=== PATIENT | male | born 1980 | race Caucasian/White ===

== ENCOUNTER 2017-06-16 09:25 | Emergency (ER) | payer BC | END 2017-06-16 09:55 | disposition home or self-care (01) | LOC: SCSER 09:25 | DX: K64.4 Residual hemorrhoidal skin tags (principal) | CPT/HCPCS: 99282 ==

== ENCOUNTER 2017-09-09 16:06 | Outpatient (CLI) | payer BC | END 2017-09-09 16:07 | disposition home or self-care (01) | LOC: BICMRI 16:06 | PROVIDERS: ATTEND Family Medicine | DX: M51.26 Other intervertebral disc displacement, lumbar region (principal); R30.0 Dysuria; N52.9 Male erectile dysfunction, unspecified; M47.897 Other spondylosis, lumbosacral region | CPT/HCPCS: 72148 ==

== ENCOUNTER 2020-08-13 12:52 | Outpatient (CLI) | payer BC ==
[~2020-08-13 12:52] MED LIST: Iopamidol-370 76% 500 ML 1 ML ONE
== END 2020-08-13 12:53 | disposition home or self-care (01) ==
LOC: BICCT 12:52
PROVIDERS: ATTEND Urology
DX: R31.29 Other microscopic hematuria (principal)
CPT/HCPCS: 74178; Q9967

== ENCOUNTER 2023-08-11 11:10 | Outpatient (CLI) | payer BC | END 2023-08-11 11:11 | disposition home or self-care (01) | LOC: BICRAD 11:10 | PROVIDERS: ATTEND Nurse Practitioner Family | DX: M25.521 Pain in right elbow (principal); M85.68 Other cyst of bone, other site ==

== ENCOUNTER 2023-08-21 08:13 | Outpatient (CLI) | payer BC | END 2023-08-21 08:14 | disposition home or self-care (01) | LOC: BICMRI 08:13 | PROVIDERS: ATTEND Nurse Practitioner Family | DX: S59.901A Unspecified injury of right elbow, initial encounter (principal); M25.521 Pain in right elbow; S56.511A Strain of other extensor muscle, fascia and tendon at forearm level, right arm, initial encounter; M67.823 Other specified disorders of tendon, right elbow; M24.121 Other articular cartilage disorders, right elbow ==